=== PATIENT | male | born 1970 | race Caucasian/White ===

== ENCOUNTER 2018-10-02 08:04 | Emergency (ER) | payer MEDICAID ==
[~2018-10-02] VITALS: Ht 162.6 cm; Wt 106.6 kg
[2018-10-02 08:08] VITALS: BP 129/80
--- NOTE | 2018-10-02 08:14 | NUR ---
PT AMBULATES TO BED 7
--- NOTE | 2018-10-02 08:22 | NUR ---
CUP PROVIDED FOR URINE SPECIMEN
--- NOTE | 2018-10-02 08:22 | NUR ---
PATIENT PRESENTS TO ED WITH LLQ ABD PAIN X2 DAYS . PT STATES HE "HAD A SIMILAR PAIN A FEW YEARS AGO BUT NOTHING WAS DONE FOR IT". DENIES N/V/D; SKIN IS WARM/DRY; AAOX4 WITH EVEN AND STEADY GAIT;PT DENIES ANY FEVER. PATIENT STATES DULL, CONSTANT PAIN OF 9/10 AT THIS TIME. PATIENT POSITIONED FOR COMFORT; HOB ELEVATED; BEDRAILS UP X2; BED DOWN.
[2018-10-02] MEDS ORDERED: IBUPROFEN 600 MG TAB PO ONE (08:35)
[2018-10-02] MEDS ORDERED: traMADol 50 MG TAB PO ONE (08:35)
--- NOTE | 2018-10-02 08:39 | NUR ---
RADIOLOGY AT BEDSIDE, PT GOING TO CT SCAN
--- NOTE | 2018-10-02 08:45 | NUR ---
PT BACK FROM CT
--- NOTE | 2018-10-02 08:48 | NUR ---
URINE COLLECTED AND SENT TO LAB
--- NOTE | 2018-10-02 08:56 | NUR ---
LAB AT BEDSIDE
[2018-10-02 09:07] LABS: BASOPHILS % (AUTO) 0.5 % (0.0-2.0); EOSINOPHILS # (AUTO) 0.2 K/uL (0-0.4); EOSINOPHILS % (AUTO) 3.5 % (0.0-4.0); HEMATOCRIT 45.2 % (36-52); HEMOGLOBIN 15.4 g/dL (12.0-18.0); LYMPHOCYTES # (AUTO) 1.1 K/uL (2.0-11.5); LYMPHOCYTES % (AUTO) 20.5 % (20.5-51.1); MEAN CORPUSCULAR HEMOGLOBIN 29 pg (27-31); MEAN CORPUSCULAR HGB CONC 34 g/dL (33-37); MEAN CORPUSCULAR VOLUME 86.3 fL (80-94); MONOCYTES # (AUTO) 0.4 K/uL (0.8-1.0); MONOCYTES % (AUTO) 6.9 % (1.7-9.3); NEUTROPHILS # (AUTO) 3.7 K/uL (1.8-7.7); NEUTROPHILS % (AUTO) 68.6 % (42.2-75.2); PLATELET COUNT (AUTO) 192 K/uL (140-450); RED BLOOD CELL COUNT(AUTO) 5.24 MIL/uL (4.20-6.10); RED CELL DISTRIBUTION WIDTH 13.4 % (11.6-13.7); WHITE BLOOD COUNT (AUTO) 5.4 K/uL (4.8-10.8)
[2018-10-02 09:13] LABS: ANION GAP 9.2 (8-16); CARBON DIOXIDE 27.8 mmol/L (21-32); CREATININE 0.8 mg/dL (0.7-1.3)
[2018-10-02 09:14] LABS: APPEARANCE,URINE CLEAR (CLEAR); BLOOD, URINE NEGATIVE (NEGATIVE); COLOR,URINE YELLOW (YELLOW); PH,URINE 6.5 (5.0-9.0); UGLUCOSE NEGATIVE (NEGATIVE)
[2018-10-02 09:15] LABS: BILIRUBIN,URINE NEGATIVE (NEGATIVE); LEUKOCYTE ESTERASE ,URINE NEGATIVE (NEGATIVE); NITRITE, URINE NEGATIVE (NEGATIVE)
--- NOTE | 2018-10-02 09:52 | NUR ---
PATIENT IN BED, NO ACUTE DISTRESS NOTED
[2018-10-02 10:31] VITALS: BP 124/76
--- NOTE | 2018-10-02 10:32 | NUR ---
Patient discharged with v/s stable. Written and verbal after care instructions given and explained. Patient alert, oriented and verbalized understanding of instructions. Ambulatory with steady gait. All questions addressed prior to discharge. ID band removed. Patient advised to follow up with PMD. Rx of METRONIDAZOLE, CIPROFLOXACIN, & IBUPROFEN given. Patient educated on indication of medication including possible reaction and side effects. Opportunity to ask questions provided and answered.
== END 2018-10-02 10:32 | disposition home or self-care (01) ==
LOC: MED 08:04
DX: K57.92 Diverticulitis of intestine, part unspecified, without perforation or abscess without bleeding (principal)
CPT/HCPCS: 36415; 80048; 81003; 85025; 99284

== ENCOUNTER 2018-10-20 14:01 | Inpatient (IN) | payer MEDICAID ==
[~2018-10-20] VITALS: Ht 167.6 cm; Wt 105.2 kg
[2018-10-20 14:18] VITALS: BP 115/69
--- NOTE | 2018-10-20 15:40 | NUR ---
C/O SEVERE ABDOMINAL PAIN WITH BLOODY STOOLS X 2 DAYS. PT REPORTS WAS SEEN 2 WEEKS AGO FOR THE SAME COMPLAINT. . DENIES N/V/D; SKIN IS PINK/WARM/DRY; AAOX4. LUNGS CLEAR BL; HR EVEN AND REGULAR; PT DENIES ANY FEVER, CP, SOB, OR COUGH AT THIS TIME; PATIENT STATES PAIN OF 10/10 AT THIS TIME; VSS; PATIENT POSITIONED FOR COMFORT; HOB ELEVATED; BEDRAILS UP X2; BED DOWN. ER MD MADE AWARE OF PT STATUS. SON AT BEDSIDE.
[2018-10-20] MEDS ORDERED: NACL 0.9% 2,000 ML IV SCH (15:45)
--- NOTE | 2018-10-20 16:16 | NUR ---
LAB AT BEDSIDE
[2018-10-20] MEDS ORDERED: PIPERACILLIN/TAZOBACTAM 3.375 GM in DEXTROSE 5% 50 ML IV ONE (16:30)
[2018-10-20] MEDS ORDERED: metroNIDAZOLE 500 MG/NS PREMIX 100 ML IV ONE (16:30)
[2018-10-20 16:45] LABS: BASOPHILS % (AUTO) 0.4 % (0.0-2.0); EOSINOPHILS % (AUTO) 0.8 % (0.0-4.0); HEMATOCRIT 44.4 % (36-52); HEMOGLOBIN 15.3 g/dL (12.0-18.0); LYMPHOCYTES # (AUTO) 0.7 K/uL (2.0-11.5); LYMPHOCYTES % (AUTO) 14.3 % (20.5-51.1); MEAN CORPUSCULAR HEMOGLOBIN 29 pg (27-31); MEAN CORPUSCULAR HGB CONC 35 g/dL (33-37); MONOCYTES # (AUTO) 0.4 K/uL (0.8-1.0); MONOCYTES % (AUTO) 8.4 % (1.7-9.3); NEUTROPHILS # (AUTO) 3.6 K/uL (1.8-7.7); NEUTROPHILS % (AUTO) 76.1 % (42.2-75.2); PLATELET COUNT (AUTO) 180 K/uL (140-450); RED BLOOD CELL COUNT(AUTO) 5.22 MIL/uL (4.20-6.10); RED CELL DISTRIBUTION WIDTH 13.7 % (11.6-13.7); WHITE BLOOD COUNT (AUTO) 4.7 K/uL (4.8-10.8)
[2018-10-20 16:49] LABS: ALBUMIN 3.8 g/dL (3.4-5.0); ANION GAP 13.5 (8-16); CARBON DIOXIDE 26.3 mmol/L (21-32); CREATININE 0.9 mg/dL (0.7-1.3); POTASSIUM 3.8 mmol/L (3.5-5.1); TOTAL BILIRUBIN 0.8 mg/dL (0.0-1.0)
[2018-10-20 16:52] LABS: PROTHROMBIN TIME 10.1 secs (10.8-13.4)
[2018-10-20] MEDS ORDERED: PIPERACILLIN/TAZOBACTAM 3.375 GM VIAL IV ONE (16:52)
[2018-10-20 16:56] LABS: CREATINE KINASE MB 1.1 ng/mL (0-3.6)
[2018-10-20] MEDS ORDERED: CYCL10TA33 PO (16:56)
[2018-10-20] MEDS ORDERED: ACETAMINOPHEN 325 MG TAB PO PRN (17:20)
[2018-10-20] MEDS ORDERED: ONDANSETRON 4 MG/2 ML VIAL IM/IVP PRN (17:20)
[2018-10-20] MEDS ORDERED: DOCUSATE SODIUM 100 MG GELCAP PO PRN (17:20)
[2018-10-20] MEDS ORDERED: MORPHINE SULFATE 2 MG/ML SYR IVP PRN (17:20)
--- NOTE | 2018-10-20 17:35 | NUR ---
pt to CT
--- NOTE | 2018-10-20 17:50 | NUR ---
PT RETURNED FROM CT AT THIS TIME
[2018-10-20 18:03] LABS: CHOL/HDL RATIO 4.1 (1-4.5); MAGNESIUM 1.9 mg/dL (1.8-2.4); PHOSPHORUS 3.3 mg/dL (2.5-4.9); THYROID STIMULATING HORMONE 0.81 uIU/mL (0.34-3.74)
--- NOTE | 2018-10-20 18:09 | NUR ---
PT STATED PAIN RELIEVED.
[2018-10-20 18:25] LABS: APPEARANCE,URINE CLEAR (CLEAR); BILIRUBIN,URINE NEGATIVE (NEGATIVE); BLOOD, URINE TRACE-I (NEGATIVE); COLOR,URINE YELLOW (YELLOW); LEUKOCYTE ESTERASE ,URINE NEGATIVE (NEGATIVE); NITRITE, URINE NEGATIVE (NEGATIVE); PH,URINE 6.5 (5.0-9.0); UGLUCOSE NEGATIVE (NEGATIVE)
[2018-10-20 18:37] LABS: BARBITURATE, URINE NEGATIVE ng/ml (NEG <=200); BENZODIAZEPINE, URINE NEGATIVE ng/mL (NEG <=200); CANNABINOID, URINE NEGATIVE ng/mL (NEG <=50); COCAINE, URINE NEGATIVE ng/mL (NEG <=300); OPIATE, URINE NEGATIVE ng/mL (NEG <=2000); PHENCYCLIDINE SCREEN,URINE NEGATIVE ng/mL (NEG <=25)
--- NOTE | 2018-10-20 18:37 | NUR ---
REPORT GIVEN TO NOAH MIKE. PT TRANSFERRED TO TELE 106 A BY TONY. PT AWAKE, ALERT. [facility] ALL PERSONAL BELONGINGS WITH PT. PT STATED PAIN RELIEVED.
--- NOTE | 2018-10-20 18:45 | NUR ---
PT ARRIVED FROM ER IN [facility], AMBULATED FROM HALLWAY TO BED WITH STEADY GAIT, REPORT RECEIVED FROM LUBNA MIKE, PT PLACED ON PERSONAL BANKING ASSISTANT, PT AWAKE ALERT, SKIN WARM DRY COLOR WNL, PT ORIENTED TO ROOM AND FLOOR, POC REVIEWED, CALL LE WITHIN REACH, SIDE RAILS UP, BED LOCKED IN LOW POSITION, WILL DAUGHTERS AT BEDSIDE, WILL CONTINUE TO MONITOR
--- NOTE | 2018-10-20 18:50 | NUR ---
BP 116/69, HR 80, O2SAT 100% RA, 99.5 T, RR 18
--- NOTE | 2018-10-20 19:30 | NUR ---
RECEIVED BEDSIDE REPORT FROM DAY SHIFT RN, DANIELE, AMBULATORY, 20G IV IN THE LEFT AC INFUSING WELL AND DRESSING IS CLEAN DRY AND INTACT, PATIENT IS RECEIVING THE 2ND LITER BOLUS GIVEN IN ER. SKIN IS INTACT, PATIENT STILL REPORTING ABDOMINAL PAIN BUT WAS MEDICATED FOR PAIN IN ER, WILL CONTINUE TO MONITOR. OTHER THAN PAIN, PATIENT IS STABLE ON ROOM AIR WITH NO SIGNS OF DISTRESS, FAMILY AT BEDSIDE. ORIENTED PATIENT TO FLOOR CALL LIGHT WITHIN REACH, BED IN LOW POSITION.
--- NOTE | 2018-10-20 19:30 | NUR ---
REPORT GIVEN TO WORKGROUP LEADER NURSE, PT IN STABLE CONDITION.
[2018-10-20] MEDS ORDERED: KETOROLAC 15 MG/ML VIAL IVP PRN (19:40)
[2018-10-20 20:00] VITALS: BP 110/62
--- NOTE | 2018-10-20 20:00 | NUR ---
DR. FRAUSTO WAS AT BEDSIDE TO SEE PATIENT.
[2018-10-20] MEDS: NACL 0.9% 1,000 ML IV SCH (20:28)
--- NOTE | 2018-10-20 22:14 | NUR ---
PATIENT SLEEPING AT THIS TIME, NO COMPLAINTS OF PAIN. IV INFUSION WELL IN LEFT AC, TELEMETRY NSR.
[2018-10-20] MEDS: PIPER/TAZO 3.375GM/D5W PREMIX 50 ML IV SCH (23:40)
[2018-10-21] VITALS: BP 119/42
[2018-10-21] MEDS ORDERED: PIPERACILLIN/TAZOBACTAM 3.375 GM in DEXTROSE 5% 50 ML IV SCH ×2
--- NOTE | 2018-10-21 00:40 | NUR ---
PATIENT SLEEPING COMFORTABLY, NO SIGNS OF DISTRESS ON RA, BED LOW AND CALL LIGHT WITHIN REACH.
--- NOTE | 2018-10-21 02:58 | NUR ---
PATIENT IS STILL SLEEPING COMFORTABLY, NO SIGNS OF DISTRESS ON RA, BED LOW, CALL LIGHT IN REACH. WILL CONTINUE TO MONITOR.
[2018-10-21 04:00] VITALS: BP 98/55
[2018-10-21] MEDS: metroNIDAZOLE 500 MG/NS PREMIX 100 ML IV SCH ×4 (04:22→21:07)
--- NOTE | 2018-10-21 05:24 | NUR ---
PATIENT IS RESTING IN BED, NO BOWEL MOVEMENTS THUS FAR, BOWEL SOUNDS ARE ACTIVE AND FLATUS IS PRESENT. WILL CONTINUE TO MONITOR.
[2018-10-21] MEDS: PIPER/TAZO 3.375GM/D5W PREMIX 50 ML IV SCH ×4 (05:57→23:24)
--- NOTE | 2018-10-21 06:17 | NUR ---
PATIENT HAS NOT HAD A BOWEL MOVEMENT HAS NOT HAD ABD PAIN, IV INFUSING WELL ON TELE NSR, VOIDING WELL. PATIENT WILL BE ENDORSED TO THE DAY SHIFT RN FOR CONTINUITY OF CARE.
[2018-10-21 07:02] LABS: ANION GAP 13.3 (8-16); CARBON DIOXIDE 25.2 mmol/L (21-32); CREATININE 0.9 mg/dL (0.7-1.3); POTASSIUM 3.5 mmol/L (3.5-5.1)
[2018-10-21 07:04] LABS: MAGNESIUM 1.8 mg/dL (1.8-2.4); PHOSPHORUS 3.2 mg/dL (2.5-4.9)
[2018-10-21 07:08] LABS: BASOPHILS % (AUTO) 0.4 % (0.0-2.0); EOSINOPHILS % (AUTO) 0.8 % (0.0-4.0); HEMATOCRIT 41.2 % (36-52); HEMOGLOBIN 14.2 g/dL (12.0-18.0); LYMPHOCYTES # (AUTO) 0.7 K/uL (2.0-11.5); MEAN CORPUSCULAR HEMOGLOBIN 29 pg (27-31); MEAN CORPUSCULAR HGB CONC 35 g/dL (33-37); MEAN CORPUSCULAR VOLUME 85.2 fL (80-94); MONOCYTES # (AUTO) 0.5 K/uL (0.8-1.0); MONOCYTES % (AUTO) 10.7 % (1.7-9.3); NEUTROPHILS # (AUTO) 3.5 K/uL (1.8-7.7); NEUTROPHILS % (AUTO) 73.1 % (42.2-75.2); PLATELET COUNT (AUTO) 154 K/uL (140-450); RED BLOOD CELL COUNT(AUTO) 4.83 MIL/uL (4.20-6.10); RED CELL DISTRIBUTION WIDTH 13.6 % (11.6-13.7); WHITE BLOOD COUNT (AUTO) 4.7 K/uL (4.8-10.8)
--- NOTE | 2018-10-21 07:10 | NUR ---
RECEIVED PT REPORT FROM BOAT MASTER RN AT BEDSIDE. PT IS ROMANIAN SPEAKING, AAOX4. PT ON TELE MONITORING. SKIN INTACT, WARM AND DRY. IV NOTED TO LEFT AC 22G, PATENT AND INTACT, ASYMPTOMATIC. CALL LIGHT WITHIN REACH, SIDE RAILS UP, BED LOCKED IN LOWEST POSITION, WILL CONTINUE TO MONITOR
--- NOTE | 2018-10-21 07:21 | NUR ---
ENDORSED PATIENT TO DAY SHIFT RN FOR CONTINUITY OF CARE, PATIENT STABLE.
[2018-10-21 08:00] VITALS: BP 98/52
--- NOTE | 2018-10-21 08:00 | NUR ---
ASSESSMENT DONE. PT C/O ABD PAIN 01/25, TORADOL WILL BE GIVEN.
[2018-10-21] MEDS: DOCUSATE SODIUM 250 MG GELCAP PO SCH (08:02)
--- NOTE | 2018-10-21 08:12 | NUR ---
PATIENT HAS BEEN SCREENED AND CATEGORIZED MODERATE NUTRITION RISK. PATIENT WILL BE SEEN WITHIN 3-5 DAYS OF ADMISSION. 10/23/18YAMILEX TSAI RD
[2018-10-21 08:27] LABS: T4 (THYROXINE) 6.4 ug/dL (4.5-12.0)
--- NOTE | 2018-10-21 11:10 | NUR ---
PT HAD A BM, BLOOD MUCOUS NOTED. NOTIFIED DR BARRERA. SPECIMEN ALSO SENT TO LAB.
[2018-10-21] MEDS: NACL 0.9% 1,000 ML IV SCH (11:36)
[2018-10-21 12:00] VITALS: BP 111/64
--- NOTE | 2018-10-21 12:05 | NUR ---
IV LEAKING, NEW IV STARTED ON RIGHT HAND, 22G. PT TOLERATED WELL.
--- NOTE | 2018-10-21 13:00 | NUR ---
ASKED PT TO SIGN CONSENT FOR COLONOSCOPY. PULP PRESS TENDER PHONE USED. PULP PRESS TENDER NAME AND NUMBER RECORDED ON CONSENT FORM. PT HAD NO QUESTIONS ABOUT THE PROCEDURE AT THIS TIME.
[2018-10-21] MEDS ORDERED: BOWEL EVACUANT DRINK 4,000 ML PDS PO SCH (13:15)
[2018-10-21] MEDS: SENNA 8.6 MG TAB PO SCH ×3 (13:22→21:07)
--- NOTE | 2018-10-21 14:30 | NUR ---
PT STARTED DRINKING GOLYTELY
[2018-10-21 16:00] VITALS: BP 109/70
--- NOTE | 2018-10-21 19:10 | NUR ---
ENDORSED PT TO HOSPITAL NURSE RN. PT IN STABLE CONDITION.
--- NOTE | 2018-10-21 19:11 | NUR ---
RECEIVED REPORT FROM DAY SHIFT NURSE ISAIAS-RN AT BEDSIDE. PT RESTING IN BED, AOX4-BAHRAINI SPEAKING, ON ROOM AIR WITH RIGHT HAND #22G. DISCUSSED PLAN OF CARE AND PT VERBALIZED UNDERSTANDING. NO S/S OF RESPIRATORY DISTRESS OR DISCOMFORT NOTED AT THIS TIME. BED IN LOWEST POSITION, BED BREAKS ON, BOTH SIDE RAILS UP. BEDSIDE TABLE AND CALL LIGHT ARE WITHIN REACH. WILL CONTINUE TO MONITOR.
[2018-10-21 20:00] VITALS: BP 105/69
--- NOTE | 2018-10-21 20:00 | NUR ---
VITAL SIGNS TAKEN AND TOLERATED WELL. NO S/S OF RESPIRATORY DISTRESS OR DISCOMFORT NOTED AT THIS TIME. WILL CONTINUE TO MONITOR.
[2018-10-21] MEDS ORDERED: MAGNESIUM CITRATE 300 ML BTL PO SCH (21:00)
[2018-10-21] MEDS: LACTULOSE 20 GM/30 ML UDC PO SCH (21:07)
--- NOTE | 2018-10-21 21:08 | NUR ---
SCHEDULED MEDICATION GIVEN AND TOLERATED WELL. NO S/S OF RESPIRATORY DISTRESS OR DISCOMFORT NOTED AT THIS TIME. WILL CONTINUE TO MONITOR.
--- NOTE | 2018-10-21 23:24 | NUR ---
SCHEDULED MEDICATION GIVEN AND TOLERATED WELL. NO S/S OF RESPIRATORY DISTRESS OR DISCOMFORT NOTED AT THIS TIME. WILL CONTINUE TO MONITOR.
--- NOTE | 2018-10-22 | NUR ---
VITAL SIGNS TAKEN AND TOLERATED WELL. NO S/S OF RESPIRATORY DISTRESS OR DISCOMFORT NOTED AT THIS TIME. WILL CONTINUE TO MONITOR.
--- NOTE | 2018-10-22 02:00 | NUR ---
PT CONTINUES TO SLEEP IN BED. NO S/S OF RESPIRATORY DISTRESS OR DISCOMFORT NOTED AT THIS TIME. WILL CONTINUE TO MONITOR.
[2018-10-22] MEDS: NACL 0.9% 1,000 ML IV SCH (02:34)
[2018-10-22] MEDS: metroNIDAZOLE 500 MG/NS PREMIX 100 ML IV SCH (04:17)
--- NOTE | 2018-10-22 04:17 | NUR ---
SCHEDULED MEDICATION FLAGYL GIVEN AND TOLERATED WELL. NO S/S OF RESPIRATORY DISTRESS OR DISCOMFORT NOTED AT THIS TIME. WILL CONTINUE TO MONITOR.
[2018-10-22] MEDS: PIPER/TAZO 3.375GM/D5W PREMIX 50 ML IV SCH (05:42)
--- NOTE | 2018-10-22 05:42 | NUR ---
SCHEDULED MEDICATION ZOSYN GIVEN AND TOLERATED WELL. NO S/S OF RESPIRATORY DISTRESS OR DISCOMFORT NOTED AT THIS TIME. WILL CONTINUE TO MONITOR.
--- NOTE | 2018-10-22 07:30 | NUR ---
RECEIVED PT ON BED AAOX4. NO SOB NOTED. NO C/O PAIN AT THIS TIME. IV TO RT HAND PATENT AND INTACT. CHEST CLEAR. ABDOMEN SOFT, BOWEL SOUNDS PRESENT. NPO MAINTAINED. PT IS FOR COLONOSCOPY TODAY. INSTRUCTED PT TO CALL FOR ASSISTANCE. CALL LIGHT WITHIN REACH, PT VERBALIZED UNDERSTANDING.
[2018-10-22 07:32] LABS: BASOPHILS % (AUTO) 0.5 % (0.0-2.0); EOSINOPHILS # (AUTO) 0.2 K/uL (0-0.4); EOSINOPHILS % (AUTO) 6.1 % (0.0-4.0); HEMATOCRIT 40.4 % (36-52); LYMPHOCYTES # (AUTO) 0.8 K/uL (2.0-11.5); LYMPHOCYTES % (AUTO) 22.6 % (20.5-51.1); MEAN CORPUSCULAR HEMOGLOBIN 30 pg (27-31); MEAN CORPUSCULAR HGB CONC 35 g/dL (33-37); MONOCYTES # (AUTO) 0.5 K/uL (0.8-1.0); MONOCYTES % (AUTO) 14.2 % (1.7-9.3); NEUTROPHILS % (AUTO) 56.6 % (42.2-75.2); PLATELET COUNT (AUTO) 161 K/uL (140-450); RED BLOOD CELL COUNT(AUTO) 4.75 MIL/uL (4.20-6.10); RED CELL DISTRIBUTION WIDTH 13.4 % (11.6-13.7); WHITE BLOOD COUNT (AUTO) 3.5 K/uL (4.8-10.8)
--- NOTE | 2018-10-22 07:39 | NUR ---
ENDORSED PT CARE TO DAY SHIFT NURSE ADIEL SEGURA FOR CONTINUITY OF CARE.
[2018-10-22 07:45] VITALS: BP 94/46
--- NOTE | 2018-10-22 07:45 | NUR ---
PT WHEELED TO SURGERY IN STABLE CONDITION. NPO MAINTAINED.
[2018-10-22] MEDS ORDERED: fentaNYL 0.05 MG/ML VIAL ONE (07:54)
[2018-10-22] MEDS ORDERED: MIDAZOLAM 2 MG/2 ML VIAL ONE (07:55)
[2018-10-22] MEDS ORDERED: diphenhydrAMINE 50 MG/ML VIAL ONE (07:55)
[2018-10-22] MEDS: MIDAZOLAM 2 MG/2 ML VIAL IVP ONE ×2 (08:13→09:22)
[2018-10-22] MEDS: fentaNYL 0.05 MG/ML VIAL IVP ONE ×2 (08:14→09:22)
[2018-10-22] MEDS: DOCUSATE SODIUM 250 MG GELCAP PO SCH (08:34)
[2018-10-22] MEDS: LACTULOSE 20 GM/30 ML UDC PO SCH (08:34)
[2018-10-22] MEDS: SENNA 8.6 MG TAB PO SCH (08:35)
[2018-10-22 08:49] LABS: CARBON DIOXIDE 24.6 mmol/L (21-32)
[2018-10-22 09:09] LABS: ANION GAP 14.4 (8-16); CREATININE 0.9 mg/dL (0.7-1.3)
--- NOTE | 2018-10-22 09:10 | NUR ---
PT BACK FROM SURGERY IN STABLE CONDITION. V/S STABLE. FAMILY AT THE BEDSIDE.
[2018-10-22 09:46] LABS: MAGNESIUM 2.3 mg/dL (1.8-2.4); PHOSPHORUS 3.1 mg/dL (2.5-4.9)
--- NOTE | 2018-10-22 11:05 | NUR ---
PT TOLERATED ORAL FLUIDS WELL POST COLONOSCOPY. NO N&V NOTED.
--- NOTE | 2018-10-22 12:30 | NUR ---
PT TOLERATED REGULAR DIET WELL. NO N&V NOTED. NO C/O PAIN.
--- NOTE | 2018-10-22 14:45 | NUR ---
PT AWAKE, TALKING TO FAMILY AT THE BEDSIDE. NO COMPLAINTS MADE.
[2018-10-22 16:00] VITALS: BP 109/60
[2018-10-22] MEDS: HYDROcodone/APAP 7.5/325 MG 1 TAB PO PRN (16:25)
--- NOTE | 2018-10-22 16:25 | NUR ---
PT C/O PAIN ON LEFT LOWER QUADRANT 5/10 ON THE PAIN SCALE. MEDICATED WITH NORCO PO ORDERED.
--- NOTE | 2018-10-22 18:10 | NUR ---
PT EATING DINNER, NO COMPLAINTS MADE. FAMILY AT THE BEDSIDE.
--- NOTE | 2018-10-22 18:56 | NUR ---
PT AWAKE, TALKING TO FAMILY AT THE BEDSIDE. NO COMPLAINTS MADE. WILL ENDORSE TO NEXT SHIFT NURSE FOR CONTINUITY OF CARE.
--- NOTE | 2018-10-22 19:15 | NUR ---
RECEIVED REPORT FROM DAY SHIFT NURSE DAVE-RN AT BEDSIDE. PT RESTING IN BED, AOX4-PASHTO SPEAKING, ON ROOM AIR WITH RIGHT HAND #22G. DISCUSSED PLAN OF CARE AND PT VERBALIZED UNDERSTANDING. NO S/S OF RESPIRATORY DISTRESS OR DISCOMFORT NOTED AT THIS TIME. BED IN LOWEST POSITION, BED BREAKS ON, BOTH SIDE RAILS UP. BEDSIDE TABLE AND CALL LIGHT ARE WITHIN REACH. WILL CONTINUE TO MONITOR.
[2018-10-22 20:00] VITALS: BP 102/60
--- NOTE | 2018-10-22 20:00 | NUR ---
VITAL SIGNS TAKEN AND TOLERATED WELL. NO S/S OF RESPIRATORY DISTRESS OR DISCOMFORT NOTED AT THIS TIME. WILL CONTINUE TO MONITOR.
--- NOTE | 2018-10-22 22:00 | NUR ---
PT RESTING IN BED. NO S/S OF RESPIRATORY DISTRESS OR DISCOMFORT NOTED AT THIS TIME. WILL CONTINUE TO MONITOR.
[2018-10-23] VITALS: BP 96/59
--- NOTE | 2018-10-23 | NUR ---
VITAL SIGNS TAKEN AND TOLERATED WELL. NO S/S OF RESPIRATORY DISTRESS OR DISCOMFORT NOTED AT THIS TIME. WILL CONTINUE TO MONITOR.
--- NOTE | 2018-10-23 02:00 | NUR ---
PT CONTINUES TO SLEEP IN BED. NO S/S OF RESPIRATORY DISTRESS OR DISCOMFORT NOTED AT THIS TIME. WILL CONTINUE TO MONITOR.
--- NOTE | 2018-10-23 04:00 | NUR ---
PT CONTINUES TO SLEEP IN BED. NO S/S OF RESPIRATORY DISTRESS OR DISCOMFORT NOTED AT THIS TIME. WILL CONTINUE TO MONITOR.
--- NOTE | 2018-10-23 06:00 | NUR ---
PT CONTINUES TO SLEEP IN BED. NO S/S OF RESPIRATORY DISTRESS OR DISCOMFORT NOTED AT THIS TIME. WILL CONTINUE TO MONITOR.
--- NOTE | 2018-10-23 07:14 | NUR ---
ENDORSED PT CARE TO DAY SHIFT NURSE SHIELA FOR CONTINUITY OF CARE.
--- NOTE | 2018-10-23 07:30 | NUR ---
RECEIVED PT ON BED AAOX4. NO SOB NOTED. NO C/O PAIN AT THIS TIME. IV TO RT HAND PATENT AND INTACT. CHEST CLEAR. ABDOMEN SOFT, BOWEL SOUNDS PRESENT. INSTRUCTED PT TO CALL FOR ASSISTANCE. CALL LIGHT WITHIN REACH, PT VERBALIZED UNDERSTANDING.
[2018-10-23 07:52] VITALS: BP 108/65
[2018-10-23] MEDS: DOCUSATE SODIUM 250 MG GELCAP PO SCH (08:00)
[2018-10-23] MEDS: HYDROcodone/APAP 7.5/325 MG 1 TAB PO PRN (08:01)
[2018-10-23 08:09] LABS: BASOPHILS % (AUTO) 0.6 % (0.0-2.0); EOSINOPHILS # (AUTO) 0.3 K/uL (0-0.4); EOSINOPHILS % (AUTO) 7.3 % (0.0-4.0); HEMATOCRIT 42.5 % (36-52); HEMOGLOBIN 14.8 g/dL (12.0-18.0); LYMPHOCYTES # (AUTO) 1.1 K/uL (2.0-11.5); LYMPHOCYTES % (AUTO) 22.8 % (20.5-51.1); MEAN CORPUSCULAR HEMOGLOBIN 30 pg (27-31); MEAN CORPUSCULAR HGB CONC 35 g/dL (33-37); MEAN CORPUSCULAR VOLUME 84.7 fL (80-94); MONOCYTES # (AUTO) 0.5 K/uL (0.8-1.0); MONOCYTES % (AUTO) 10.5 % (1.7-9.3); NEUTROPHILS # (AUTO) 2.8 K/uL (1.8-7.7); NEUTROPHILS % (AUTO) 58.8 % (42.2-75.2); PLATELET COUNT (AUTO) 177 K/uL (140-450); RED BLOOD CELL COUNT(AUTO) 5.02 MIL/uL (4.20-6.10); RED CELL DISTRIBUTION WIDTH 13.7 % (11.6-13.7); WHITE BLOOD COUNT (AUTO) 4.7 K/uL (4.8-10.8)
[2018-10-23 08:17] LABS: MAGNESIUM 2.2 mg/dL (1.8-2.4); PHOSPHORUS 3.5 mg/dL (2.5-4.9)
[2018-10-23 08:27] LABS: ANION GAP 14.4 (8-16); CARBON DIOXIDE 25.7 mmol/L (21-32); CREATININE 0.8 mg/dL (0.7-1.3); POTASSIUM 4.1 mmol/L (3.5-5.1)
--- NOTE | 2018-10-23 08:30 | NUR ---
pt tolerated breakfast well. consumed 100% of regular diet. no complaints made.
[2018-10-23] MEDS ORDERED: MINERAL OIL 30 ML UDC PO SCH (09:00)
[2018-10-23] MEDS ORDERED: PSYLLIUM 12.2 GM/PKT PO SCH (09:00)
[2018-10-23] MEDS ORDERED: HYDR-5122 PO (09:19)
[2018-10-23] MEDS ORDERED: DOCU100C5 PO (09:19)
[2018-10-23] MEDS ORDERED: PSYL0.5227 PO (09:19)
[2018-10-23] MEDS ORDERED: [UNRECOGNIZED DRUG - CODE] PO (10:34)
--- NOTE | 2018-10-23 11:30 | NUR ---
pt seen by Dr. Sally Michaels at the bedside. instructed to follow up in his office next week. pt and family verbalized understanding.
--- NOTE | 2018-10-23 11:45 | NUR ---
discharge instructions and teachings given to pt, prescriptions sent to pt's preferred pharmacy via escript by Dr. Reed. pt verbalized understanding. arm bands and iv removed, cannula tip intact.
--- NOTE | 2018-10-23 11:55 | NUR ---
escorted pt to the front lobby, ambulatory with steady gait, no sob noted. no complaints made. pt is discharge home in stable condition with family.
== END 2018-10-23 11:55 | disposition home or self-care (01) | DRG 254 ==
LOC: MED 14:01 → MTU 17:20
PROVIDERS: ADMIT General Practice; ATTEND General Practice
PROC: 0DBN8ZZ Excision of Sigmoid Colon, Via Natural or Artificial Opening Endoscopic (ICD-10-PCS; principal; 2018-10-22 08:00)
DX: K63.89 Other specified diseases of intestine (principal); K57.92 Diverticulitis of intestine, part unspecified, without perforation or abscess without bleeding; K64.8 Other hemorrhoids; D12.5 Benign neoplasm of sigmoid colon; E66.9 Obesity, unspecified; Z68.37 Body mass index [BMI] 37.0-37.9, adult
CPT/HCPCS: 36415; 45381; 71045; 76770; 80048; 80053; 80305; 82140; 82150; 82272; 82550; 82553; 83036; 83605; 83615; 83690; 83735; 83880; 84100; 84436; 84443; 84484; 85025; 85379; 85384; 85610; 85730; 86886; 86900; 86901; 87040; 87081; 87086; 88305; 93005; 99285; J1200; J1885; J2250; J2270; J2543; J3010; J3490; J7030; Q0092; Q9967

== ENCOUNTER 2019-04-01 19:18 | Emergency (ER) | payer MEDICAID ==
[~2019-04-01] VITALS: Ht 167.6 cm; Wt 106.6 kg
[~2019-04-01 19:18] MED LIST: CYCL10TA33 PO; DOCU100C5 PO; HYDR-5122 PO; [UNRECOGNIZED DRUG - CODE] PO
[2019-04-01 19:30] VITALS: BP 125/79
--- NOTE | 2019-04-01 19:30 | NUR ---
TO BED # 03 AMBULATORY
[2019-04-01] MEDS ORDERED: KETOROLAC 60 MG/2 ML VIAL IM ONE (19:45)
--- NOTE | 2019-04-01 19:45 | NUR ---
PT CAME TO ER C/O LEFT SIDED BACK PAIN RADIATING TO LEFT SIDED ABDOMEN. PAIN LEVEL 8/10, SHARP CONSTANT PAIN. PT TOOK IBUPROFEN 800MG AT 1820, WITHOUT ANY RELIEF. PER PT "I WAS SEEN AT [facility] IN OCTOBER FOR THE SAME PROBLEM AND RECEIVED A COLONSCOPY AT PCP AND DID NOT HAVE A DX". PT STATES "I HAVE BEEN HAVING DIARRHEA DUE TO THE PAIN." PT DENIES N/V. PT DENIES TRAUMA OR INJURY. DENIES BURNING UPON URINATION. NKA. NO MED HX. SAFETY MEASURES IN PLACE. WAITING FOR ERMD TO EVALUATE PT.
--- NOTE | 2019-04-01 20:06 | NUR ---
Note jemone in EDM - 04/01/19 at 2008 by LAI Patient discharged with v/s stable. Written and verbal after care instructions given and explained. Pt advised to drink plenty of fluid and fiber. Patient alert, oriented and verbalized understanding of instructions. Ambulatory with steady gait. All questions addressed prior to discharge. ID band removed. Patient advised to follow up with PMD. Rx of MOTRIN, PENICILLIN, ZOFRAN,DIFLUCAN, AND NORCO WAS given. Patient educated on indication of medication including possible reaction and side effects. Opportunity to ask questions provided and answered.
--- NOTE | 2019-04-01 20:10 | NUR ---
PT AMBULATED TO RESTROOM
--- NOTE | 2019-04-01 20:23 | NUR ---
PT STILL UNABLE TO GIVE URINE
--- NOTE | 2019-04-01 20:35 | NUR ---
PT ABLE TO GIVE URINE
--- NOTE | 2019-04-01 20:59 | NUR ---
Dr. Allen evaluating patient at bedside.
[2019-04-01] MEDS ORDERED: MORPHINE SULFATE 4 MG/ML SYR IM ONE (21:05)
--- NOTE | 2019-04-01 21:47 | NUR ---
Patient discharged with v/s stable. Written and verbal after care instructions given and explained. Pt encouraged to avoid caffeine, alcohol, spicy and fatty foods. Pt also encouraged to drink plenty of fluids. Patient alert, oriented and verbalized understanding of instructions. Ambulatory with steady gait. All questions addressed prior to discharge. ID band removed. Patient advised to follow up with PMD. Rx of MOTRIN AND NORCO was given. Patient educated on indication of medication including possible reaction and side effects. Opportunity to ask questions provided and answered.
[2019-04-01 21:48] VITALS: BP 102/59
== END 2019-04-01 21:47 | disposition home or self-care (01) ==
LOC: MED 19:18
DX: R10.9 Unspecified abdominal pain (principal); R19.7 Diarrhea, unspecified; Z98.890 Other specified postprocedural states; Z79.899 Other long term (current) drug therapy
CPT/HCPCS: 81002; 96372; 99283; J1885; J2270